=== PATIENT | female | born 1970 | race Caucasian/White ===

== ENCOUNTER 2018-09-20 20:01 | Observation (INO) ==
--- NOTE | 2018-09-20 20:12 | Emergency Department Note ---
Disposition Clinical Impression: Palpitations, Lightheadedness Chest pain Qualifiers: Chest pain type: unspecified Qualified Code(s): R07.9 - Chest pain, unspecified Disposition: Admitted As Inpatient Condition: Fair Time of Disposition: 21:51 General Adult HPI - General Stated complaint: Chest Pain Time Seen by Provider: 09/20/18 20:06 Source: patient Mode of arrival: private vehicle Limitations: no limitations Nursing Notes Reviewed: Yes Vital Signs Reviewed: Yes - History of Present Illness HPI Narrative: Patient is a 47-year-old female with a past medical history including lymphedema, coronary artery disease, failed a stress test in June and had a CABG by Dr. Bernal, has history of lower extremity DVT, atrial fibrillation on Eliquis, presenting with a chief complaint of chest pain. The patient states she has been attending cardiac rehabilitation and she has been doing well. For the past 3 days, she complains of intermittent chest heaviness. She states today, she developed chest heaviness around her left collarbone that radiated into her mid sternum. She states it has been pretty constant. She complains of bilateral hand pain and tingling. She also complains of intermittent palpitations and lightheadedness. She states she feels like her "atrial fibrillation is acting up.". She states she has not experienced this much chest pain since her CABG. She denies any shortness of breath, vomiting, abdominal pa in, fevers or chills. - Related Data Home Medications Medication Instructions Recorded Confirmed Apixaban [Eliquis] 5 mg PO BID 07/08/18 09/20/18 Pantoprazole Sodium [Protonix] 40 mg PO DAILY 07/08/18 09/20/18 Atorvastatin Calcium [Lipitor] 80 mg PO HS 07/10/18 09/20/18 Metoprolol Tartrate 50 mg PO BID 07/10/18 09/20/18 Triamterene/HCTZ 37.5/25mg 1 each PO MOWEFR 09/20/18 09/20/18 [Dyazide] Previous Rx's Medication Instructions Recorded Aspirin Enteric Coated [Aspirin EC] 81 mg PO DAILY #60 tablet. 06/21/18 Allergies Allergy/AdvReac Type Severity Reaction Status Date / Time No Known Allergies Allergy Verified 07/10/18 07:29 All systems ED: reviewed and negative except as stated. Review of Systems: As Per HPI Constitutional: Denies: fever, chills Cardiovascular: Reports: chest pain, palpitations Respiratory: Denies: cough, dyspnea Gastrointestinal: Denies: abdominal pain, vomiting Genitourinary: Denies: dysuria Musculoskeletal: Denies: back pain Neurological: Denies: headache, weakness, numbness, paresthesias, confusion Past Medical History - Past Medical History Attestation: Yes The following information was validated with the patient. Source: patient Medical history: Reports: cancer (Hodgkin's lymphoma), coronary artery disease, hyperlipidemia, hypertension Surgical history: Reports: , coronary bypass (CABG) (CABG2 (HORN to LAD, SVG to OM1)) Psychiatric history: Reports: no psych history - Social History Smoking Status: Former smoker Smokeless Tobacco Status: No Alcohol use: Reports: rarely Drug use: Reports: none Physical Exam - General Limitations: no limitations General appearance: alert, in no apparent distress - Head Head exam: atraumatic, normocephalic - Eye Eye exam: Present: normal appearance, EOMI - ENT ENT exam: normal exam, normal oropharynx - Neck Neck exam: Present: normal inspection, trachea midline - Chest Chest inspection: Present: normal inspection, symmetric chest wall rise, other (Midline sternal scar appears well healing) - Respiratory Respiratory exam: Present: normal lung sounds bilaterally. Absent: respiratory distress, wheezes - Cardiovascular Cardiovascular exam: Present: regular rate, normal rhythm, normal heart sounds, other (bilateral radial pulses equal) - Abdominal Exam Abdominal exam: Present: soft, Non-Tender. Absent: distention - Extremities Exam Extremities exam: Present: normal capillary refill, other (Bilateral lower extremity swelling and lymphedema). Absent: calf tenderness - Neurological Exam Neurological exam: Present: alert, oriented X3 - Psychiatric Psychiatric exam: Present: normal affect, normal mood - Skin Skin exam: Present: warm, dry. Absent: diaphoresis, pallor Course Vital Signs Temperature 98.2 F 09/20/18 20:07 Pulse Rate 92 09/20/18 20:07 Respiratory Rate 18 09/20/18 20:07 Blood Pressure 177/92 09/20/18 20:07 O2 Sat by Pulse Oximetry 100 09/20/18 20:07 Temperature 98.2 F 09/20/18 20:07 Pulse Rate 92 09/20/18 20:07 Respiratory Rate 18 09/20/18 20:07 Blood Pressure 177/92 09/20/18 20:07 O2 Sat by Pulse Oximetry 98 09/20/18 20:24 Oxygen Delivery Oxygen Delivery Room Air Medical Decision Making - MDM Narrative Medical decision making narrative: Patient is anxious appearing. She has chest heaviness, no shortness of breath or lightheadedness, no palpitations at this time. She has history of CABG in June from failing a stress test. She is on Eliquis for atrial fibrillation and lower extremity DVT as well. She notes her compliance with her medications. Vitals are within normal limits. Blood pressure is slightly elevated. We will give her an aspirin as she has not had aspirin today. We will obtain cardiac workup. Anticipate admission. 21:30 Labs and imaging reviewed. Initial troponin less than 0.03. Patient states she has no chest pain at this time. She states she is still having intermittent lightheadedness. Her heart rate has been in the 70s. Hospitalist paged for admission for ACS workup. Patient also has significant risk factors. 21:42 Discussed with hospitalist, Dr. Salazar who accepts admission. - Medical Records Medical records reviewed: Yes I reviewed the patient's medical records. - Lab Data Lab results reviewed: Yes I reviewed the patient's lab results. Result diagrams: 09/20/18 20:18 09/20/18 20:18 Lab Results 09/20/18 09/20/18 09/20/18 Range/Units 20:18 20:18 20:18 WBC 8.5 (4.3-11.1) K/mcL RBC 4.36 (3.82-4.97) M/mcL Hgb 11.7 (11.5-15.4) g/dL Hct 37.3 (35.3-44.9) % MCV 85.6 (83.0-100.0) fL MCH 26.8 L (28.0-33.3) pg MCHC 31.4 L (31.6-35.5) g/dL RDW 14.7 H (11.5-14.5) % Plt Count 249 (140-400) K/mcL MPV 10.2 (9.4-12.4) fL Immature Gran % 0.2 (0-4) % Seg Neutrophils % 60.0 % Lymphocytes % 26.1 % Monocytes % 10.0 % Eosinophils % 3.2 % Basophils % 0.5 % Neutrophils # 5.1 (1.6-8.9) K/mcL Lymphocytes # 2.2 (0.6-4.6) K/mcL Monocytes # 0.9 (0.0-1.3) K/mcL Eosinophils # 0.3 (0.0-0.6) K/mcL Basophils # 0.0 (0.0-0.2) K/mcL PT 12.6 H (9.4-12.1) Seconds INR 1.1 APTT 36.6 H (26.0-36.0) Seconds Sodium 139 (136-145) mEq/L Potassium 3.7 (3.5-5.1) mEq/L Chloride 101 (98-107) mEq/L Carbon Dioxide 28 (23-29) mEq/L BUN 13 (6-20) mg/dL Creatinine 0.80 (0.60-1.20) mg/dL Est GFR ( Amer) > 60 (> 60) Est GFR (Non-Af Amer) > 60 (> 60) BUN/Creatinine Ratio 16 (6-26) Glucose 97 (70-105) mg/dL Calculated Osmolality 288 (280-300) Calcium 9.8 (8.6-10.3) mg/dL Troponin I < 0.03 (< 0.04) ng/mL - Radiology Data Radiology results reviewed: Yes I reviewed the patient's radiology results. Chest X-Ray 09/20/18 20:07 IMPRESSION: No acute abnormality detected. D/ / Hubert Vazquez MD / Hubert Vazquez MD Interpreting Provider: Hubert Vazquez MD - EKG Data EKG #1 EKG attestation: Yes I reviewed and interpreted this EKG. EKG results narrative: EKG obtained at 2008 shows sinus rhythm with heart rate 92, NV interval 142, QRS duration 97, QTC 475, no ST elevation, no ST depression, T-wave inversion in lead 3 and aVR, compared to old EKG on 08/23/2018 which shows new T-wave inversion in lead 3. Attestation Statement - Attestation Attestation: I, Reji Baker, examined this patient and my medical decision-making was reviewed with the GROUND WATER TECHNICIAN/PA/Advanced Practice Nurse/Resident Physician. I agree with the documented findings, disposition and treatment plan as described except to the extent set forth below. 47-year-old female presents emergency Department with concerns of chest pain. Patient reports a recent history of CABG 2 which was performed 3 months ago. She had a complicated recovery time after that with subsequent infections in the right lower extremity as well as removal of her gallbladder. Patient had been steadily improving afterwards and now has developed pain to the left inferior chest that feels different to the pain after she had after her CABG. Patient also feels lightheaded in association with the pain. She denies syncopal event. Patient denies hematemesis, melena, hematochezia. Laboratory evaluation does not have an elevation of her troponin. EKG did not show evidence of STEMI.I reviewed the EKG with the resident and agree with the interpretation. Patient will be admitted to hospitalist for further care and evaluation of her chest pain to rule out ACS.
[2018-09-20] MEDS ORDERED: Aspirin 81 MG TAB.CHEW PO STA (20:32)
[2018-09-20 20:52] LABS: Basophils % 0.5 %; Eosinophils # 0.3 K/mcL (0.0-0.6); Eosinophils % 3.2 %; Hematocrit 37.3 % (35.3-44.9); Hemoglobin 11.7 g/dL (11.5-15.4); Immature Granulocytes % 0.2 % (0-4); Lymphocytes # 2.2 K/mcL (0.6-4.6); Lymphocytes % 26.1 %; Mean Corpuscular HGB Conc 31.4 g/dL (31.6-35.5); Mean Corpuscular Hemoglobin 26.8 pg (28.0-33.3); Mean Corpuscular Volume 85.6 fL (83.0-100.0); Mean Platelet Volume 10.2 fL (9.4-12.4); Monocytes # 0.9 K/mcL (0.0-1.3); Neutrophils # 5.1 K/mcL (1.6-8.9); Platelet Count 249 K/mcL (140-400); Red Blood Count 4.36 M/mcL (3.82-4.97); Red Cell Distribution Width 14.7 % (11.5-14.5); White Blood Count 8.5 K/mcL (4.3-11.1)
[2018-09-20 21:00] LABS: INR 1.1; Prothrombin Time 12.6 Seconds (9.4-12.1)
[2018-09-20 21:02] LABS: Activated Partial Thrombo Time 36.6 Seconds (26.0-36.0)
[2018-09-20 21:15] LABS: Troponin I < 0.03 ng/mL (< 0.04)
[2018-09-20 21:21] LABS: BUN/Creatinine Ratio 16 (6-26); Blood Urea Nitrogen 13 mg/dL (6-20); Calcium 9.8 mg/dL (8.6-10.3); Carbon Dioxide 28 mEq/L (23-29); Chloride 101 mEq/L (98-107); Glucose 97 mg/dL (70-105); Osmolality,Calculated 288 (280-300); Potassium 3.7 mEq/L (3.5-5.1); Sodium 139 mEq/L (136-145); eGFR For African Americans > 60 (> 60); eGFR For Non-African Americans > 60 (> 60)
--- NOTE | 2018-09-20 23:58 | Internal Med History&Physical ---
Date of Encounter: 09/20/18 Time of Encounter: 10:00 Internal Medicine - H&P: HPI Chief complaint: chest pain History of present illness: Ms. Plascencia is a 47 year old female with past medical history of cancer, coronary artery disease, DVT, hyperlipidemia, hypertension who presented to the ER with 3 days history of intermittent chest pain, pressure in character radia ting to her left arm and associated with bilateral hand pain and tingling as well as intermitted palpitation. The patient has extensive history of coronary artery disease including CABG. She also has history of atrial fibrillation and on chronic anticoagulation was Eliquis. The patient stated that the pain is similar to what she used to and/or prior to her CABG. The patient was evaluated by the ER staff and initial workup including EKG and cardiac enzymes were was no significant abnormalities the patient was admitted for further evaluation and management of possible acute coronary syndrome. Past Med Surg Social Fam HX - Past Medical History Medical history: cancer, coronary artery disease, DVT, hyperlipidemia, hypertens ion Additional medical history: lymphoma 15 years ago Psychiatric history: no psych history - Past Surgical History Surgical History: , coronary bypass (CABG) - Social History Smoking Status: Former smoker Smokeless Tobacco Status: No Alcohol use: rarely Drug use: none - Family History Maternal Grandfather Living Status: Mother Living Status: Still Living Father Living Status: Hx Family Cancer: Yes Hx Family Endocrine Disorder: Yes (diabetes) Internal Medicine - H&P: Meds Aspirin Enteric Coated [Aspirin EC] 81 mg PO DAILY #60 tablet. 06/21/18 [Rx] Apixaban [Eliquis] 5 mg PO BID 07/08/18 [History] Pantoprazole Sodium [Protonix] 40 mg PO DAILY 07/08/18 [History] Atorvastatin Calcium [Lipitor] 80 mg PO HS 07/10/18 [History] Metoprolol Tartrate 50 mg PO BID 07/10/18 [History] Triamterene/HCTZ 37.5/25mg [Dyazide] 1 each PO MOWEFR 09/20/18 [History] Allergy/AdvReac Type Severity Reaction Status Date / Time No Known Allergies Allergy Verified 07/10/18 07:29 All Systems PM: A 10-system review of systems was performed and is negative for pertinent findings except as documented above in the HPI. - Constitutional Vitals: Temp Pulse Resp BP Pulse Ox 98.0 F 81 14 124/69 98 09/20/18 23:18 09/20/18 23:18 09/20/18 23:18 09/20/18 23:18 09/20/18 23:18 General appearance: Present: A&O X 3 Exam: ` - Head Head exam: Present: atraumatic, normocephalic - Neck Neck exam general surgery: Present: supple, trachea midline. Absent: lymphadenopathy - Respiratory Respiratory exam: Present: CTAB. Absent: accessory muscle use, rales, rhonchi, wheezes - GI/Abdominal GI/Abdominal exam: Present: normal bowel sounds, soft, no peritoneal signs. Absent: distended, tenderness - Extremities Exam Extremities exam: Present: warm, radial pulses palpable and symmetrical. Absent: calf tenderness, cyanotic, pedal edema Internal Med - H&P Results - Labs CBC & Chem 7: 09/21/18 01:27 09/21/18 20:01 Labs: Short CBC 09/20/18 Range/Units 20:18 WBC 8.5 (4.3-11.1) K/mcL Hgb 11.7 (11.5-15.4) g/dL Hct 37.3 (35.3-44.9) % Plt Count 249 (140-400) K/mcL Neutrophils # 5.1 (1.6-8.9) K/mcL BMP 09/20/18 20:18 Sodium 139 Potassium 3.7 Chloride 101 Carbon Dioxide 28 BUN 13 Creatinine 0.80 Glucose 97 Calcium 9.8 Cardiac Enzymes 09/20/18 Range/Units 20:18 Troponin I < 0.03 (< 0.04) ng/mL - Impressions ITS Impressions Chest X-Ray 09/20/18 20:07 IMPRESSION: No acute abnormality detected. D/ / Hubert Vazquez MD / Hubert Vazquez MD Interpreting Provider: Hubert Vazquez MD - Assessment and Plan (1) Chest pain Status: Chronic Assessment and plan: - The patient has extensive history of coronary artery disease including CABG. She also has history of atrial fibrillation and on chronic anticoagulation was Eliquis. The patient stated that the pain is similar to what she used to and/or prior to her CABG. PLAN: - cardiac enzymes x 2 q 8 hr - EKG now and in AM - ASA - O2 by NC to keep SpO2 greater than 92% - UA - CBCD, BMP in AM - Fasting lipids Qualifiers: Chest pain type: unspecified Qualified Code(s): R07.9 - Chest pain, unspecified (2) Anemia Status: Chronic Assessment and plan: Cont. to monitor H&H Qualifiers: Anemia type: unspecified type Qualified Code(s): D64.9 - Anemia, unspecified (3) Hypertension Status: Chronic Assessment and plan: Cont home meds Qualifiers: Hypertension type: essential hypertension Qualified Code(s): I10 - Essential (primary) hypertension (4) HLD (hyperlipidemia) Status: Chronic Assessment and plan: FLP in AM Qualifiers: Hyperlipidemia type: unspecified Qualified Code(s): E78.5 - Hyperlipidemia, unspecified (5) DVT prophylaxis Status: Acute - Time Spent With Patient Total time spent is greater than 50% in coordination of care (as documented) at patient's floor/unit and/or counseling patient:
[2018-09-21] MEDS ORDERED: Ondansetron 4 MG/2 ML VIAL IVP PRN (00:05)
[2018-09-21] MEDS ORDERED: Naloxone 0.4 MG/ML INJ IVP PRN (00:05)
[2018-09-21 01:44] LABS: Basophils % 0.4 %; Eosinophils # 0.3 K/mcL (0.0-0.6); Eosinophils % 4.3 %; Hematocrit 35.9 % (35.3-44.9); Hemoglobin 11.3 g/dL (11.5-15.4); Immature Granulocytes % 0.3 % (0-4); Mean Corpuscular HGB Conc 31.5 g/dL (31.6-35.5); Mean Corpuscular Hemoglobin 26.8 pg (28.0-33.3); Mean Corpuscular Volume 85.1 fL (83.0-100.0); Mean Platelet Volume 9.8 fL (9.4-12.4); Monocytes # 0.6 K/mcL (0.0-1.3); Monocytes % 8.8 %; Neutrophils # 4.1 K/mcL (1.6-8.9); Platelet Count 207 K/mcL (140-400); Red Blood Count 4.22 M/mcL (3.82-4.97); Red Cell Distribution Width 14.7 % (11.5-14.5); Segmented Neutrophils % 58.2 %
[2018-09-21 01:55] LABS: INR 1.1; Prothrombin Time 12.1 Seconds (9.4-12.1)
[2018-09-21 01:57] LABS: Activated Partial Thrombo Time 35.5 Seconds (26.0-36.0)
[2018-09-21 02:01] LABS: Alanine Aminotransferase 32 Units/L (7-52); Albumin 3.5 g/dL (3.5-5.7); Albumin/Globulin Ratio 1.1 (1.1-2.2); Alkaline Phosphatase 131 Units/L (34-104); Aspartate Amino Transferase 39 Units/L (13-39); BUN/Creatinine Ratio 18 (6-26); Bilirubin,Total 0.3 mg/dL (0.3-1.0); Blood Urea Nitrogen 14 mg/dL (6-20); Calcium 9.1 mg/dL (8.6-10.3); Carbon Dioxide 25 mEq/L (23-29); Chloride 104 mEq/L (98-107); Chol/HDL Ratio 3.6 (0-4.9); Cholesterol 122 mg/dL (< 200); Globulin 3.1 g/dL (2.4-3.5); Glucose 120 mg/dL (70-105); HDL Cholesterol 34 mg/dL (40-59); LDL Cholesterol,Calculated 58 mg/dL (0-99); Magnesium 1.8 mg/dL (1.6-2.6); Osmolality,Calculated 288 (280-300); Phosphorous 3.5 mg/dL (2.7-4.5); Potassium 3.4 mEq/L (3.5-5.1); Sodium 138 mEq/L (136-145); Total Protein 6.6 g/dL (6.4-8.9); Triglycerides 152 mg/dL (< 150); eGFR For African Americans > 60 (> 60); eGFR For Non-African Americans > 60 (> 60)
[2018-09-21 07:29] VITALS: BP 121/73
[2018-09-21] MEDS ORDERED: Aspirin Enteric Coated 81 MG Tablet PO SCH (09:00)
[2018-09-21] MEDS ORDERED: Apixaban 5 MG TABLET PO SCH (09:00)
--- NOTE | 2018-09-21 10:28 | Cardiology Consult Note ---
<Mallika Shrestha Duke - Last Filed: 09/21/18 11:10> Date of Encounter: 09/21/18 Time of Encounter: 09:30 Assessment and Plan (1) Chest pain Current Visit: Yes Status: Chronic Atypical chest pain symptoms. Pain free upon exam. No ST/T wave changes noted. Troponin negative x3. Recent 2v CABG on 06/16/18. Check TTE to evaluate structure and function. Suspect symptoms may be secondary to poorly controlled BP as BP was severely elevated upon presentation. If no significant abnormalities on TTE, anticipate sign-off. Qualifiers: Chest pain type: unspecified Qualified Code(s): R07.9 - Chest pain, unspecified (2) S/P CABG (coronary artery bypass graft) Current Visit: No Status: Acute S/p recent 2vCABG June 2018. Plan as above. Asa, statin, and BB. (3) Hypertension Current Visit: Yes Status: Chronic Suspect poorly controlled BP may be attributing to symptoms. Continue to monitor, currently controlled. Qualifiers: Hypertension type: essential hypertension Qualified Code(s): I10 - Essential (primary) hypertension (4) PAF (paroxysmal atrial fibrillation) Current Visit: Yes Status: Acute Patient reports hx of PAF, on Eliquis (also with hx of DVT). No PAF noted on telemetry. Continue BB. Discussion w patient/family: The assessment and plan as outlined above was discussed with the patient and/or family members who expressed understanding and agreement. All questions were an swered. Thank you for involving us in the care of your patient. Please call with any questions. The patient will be discussed and reviewed with Dr. Reji Pacheco; changes to be made accordingly. History of Present Illness Consult date: 09/21/18 Requesting physician: Marvin Zayas Consult reason: Chest pain Chief complaint: dizziness, lightheadedness, chest pain History of present illness: Ms. Plascencia is a 47 year old female with PMHx of Hodgkins Lymphoma (remission), HLD, CAD s/p CABG, and PAF (Eliquis) who presented to the ED with complaints lightheadedness associated with left arm tingling. Patient reports symptoms started a few days ago and she was "not feeling right." She states symptoms would come and go and was not related to activity or exertion. Nothing seemed to improve discomfort however left arm tingling worsened with movement or reaching for something. Yesterday, she had an episode of palpitations that was similar to "afib flare" which prompted ED evaluation. Troponin negative x3. No significant ECG changes noted. She is chest pain free upon exam. Of noted, she was severely hypertensive upon arrival. Recent CV testing: TTE 06/15/18: LVEF 60%, no significant valvular dysfunction, normal wall motion LHC 06/15/18: severe 1v CAD, 85% LMCA, urgent CABG recommended [facility] 06/16/18: 2v CABG; HORN-LAD, SVG to OM Past Med Surg Social Fam HX - Past Medical History Attestation: Yes The following information was validated with the patient. Source: patient Medical history: cancer, coronary artery disease, DVT, hyperlipidemia, hypertension Additional medical history: lymphoma 15 years ago Psychiatric history: no psych history - Past Surgical History Surgical History: , coronary bypass (CABG) - Social History Smoking Status: Former smoker Smokeless Tobacco Status: No Alcohol use: rarely Drug use: none - Family History Maternal Grandfather Living Status: Mother Living Status: Still Living Father Living Status: Hx Family Cancer: Yes Hx Family Endocrine Disorder: Yes (diabetes) Medications and Allergies Aspirin Enteric Coated [Aspirin EC] 81 mg PO DAILY #60 tablet. 06/21/18 [Rx] Apixaban [Eliquis] 5 mg PO BID 07/08/18 [History] Pantoprazole Sodium [Protonix] 40 mg PO DAILY 07/08/18 [History] Atorvastatin Calcium [Lipitor] 80 mg PO HS 07/10/18 [History] Metoprolol Tartrate 50 mg PO BID 07/10/18 [History] Triamterene/HCTZ 37.5/25mg [Dyazide] 1 each PO MOWEFR 09/20/18 [History] Allergy/AdvReac Type Severity Reaction Status Date / Time No Known Allergies Allergy Verified 07/10/18 07:29 All Systems Review: The remainder of the systems were reviewed and are negative - Cardiovascular Cardiovascular: as per HPI Physical Examination Vital Signs, Last 4 Hours Temp Pulse Resp BP Pulse Ox 09/21/18 07:28 97.5 F L 73 14 121/73 98 General: Conversant, No Apparent Distress HEENT: Atraumatic, Normocephaly, Mucus Membranes Moist Neck: No JVD, Normal carotid pulses Cardiac: Reg Rate and Rhythm, Normal S1 and S2, No Murmur Lungs: Normal Breath Sounds, No Wheeze, Rales, Rhonchi Neuro: Alert and responsive, No focal deficits noted Abdomen: Soft, Non-Tender Skin: No rashes noted on visualized skin, Other (healed sternotomy) Musculoskeletal: No Chest Wall Tenderness Extremities: No Clubbing, No Cyanosis, No Edema, Normal Pulses Results 09/21/18 01:27 09/21/18 01:27 Lab Results 09/20/18 09/20/18 09/20/18 20:18 20:18 20:18 WBC 8.5 Hgb 11.7 Hct 37.3 Plt Count 249 INR 1.1 APTT 36.6 H Sodium 139 Potassium 3.7 Chloride 101 Carbon Dioxide 28 BUN 13 Creatinine 0.80 Glucose 97 Calcium 9.8 Magnesium Total Bilirubin AST ALT Alkaline Phosphatase Troponin I < 0.03 09/21/18 09/21/18 09/21/18 01:27 01:27 01:27 WBC 7.0 Hgb 11.3 L Hct 35.9 Plt Count 207 INR 1.1 APTT 35.5 Sodium Potassium Chloride Carbon Dioxide BUN Creatinine Glucose Calcium Magnesium Total Bilirubin AST ALT Alkaline Phosphatase Troponin I < 0.03 09/21/18 09/21/18 01:27 06:07 WBC Hgb Hct Plt Count INR APTT Sodium 138 Potassium 3.4 L Chloride 104 Carbon Dioxide 25 BUN 14 Creatinine 0.76 Glucose 120 H Calcium 9.1 Magnesium 1.8 Total Bilirubin 0.3 AST 39 ALT 32 Alkaline Phosphatase 131 H Troponin I < 0.03 Active Medications Apixaban (Eliquis) 5 mg PO BID [facility]; Protocol Stop: 03/23/19 09:01 Last Admin: 09/21/18 07:57 Dose: 5 mg Documented by: Aspirin (Aspirin Ec) 81 mg PO DAILY [facility] Stop: 03/23/19 09:01 Last Admin: 09/21/18 07:57 Dose: 81 mg Documented by: Atorvastatin Calcium (Lipitor) 80 mg PO HS [facility] Stop: 03/23/19 21:01 Metoprolol Tartrate (Lopressor) 50 mg PO BID [facility] Stop: 03/23/19 09:01 Last Admin: 09/21/18 07:57 Dose: 50 mg Documented by: Naloxone HCl (Narcan) 0.4 mg IVP Q2MPRN PRN PRN Reason: SEE COMMENTS Stop: 03/23/19 00:06 Omeprazole (Prilosec) 20 mg PO DAILY [facility] Stop: 03/23/19 09:01 Last Admin: 09/21/18 07:57 Dose: 20 mg Documented by: Ondansetron HCl (Zofran) 4 mg IVP Q8H PRN PRN Reason: Nausea And Vomiting Stop: 03/23/19 00:06 Triamterene/HCTZ (Dyazide) 1 each PO MOWEFR [facility] Stop: 03/24/19 00:09 - Imaging and Cardiology Stress Test: report reviewed Echo: pending, report reviewed Cardiac cath: report reviewed Other Results: 12 hour tele: avg HR=75 SR. No events noted. No PAF - EKG Interpretation EKG results cardiology: personally reviewed Consult Discharge Plan - Plan Referrals: Patrick Contreras DO [Primary Care Provider] - <Reji Pacheco - Last Filed: 09/21/18 12:17> Date of Encounter: 09/21/18 - Attending Attestation I have personally performed a face to face evaluation on this patient. I have reviewed and agree with the care plan. History and Exam by me shows: Known CAD, S/P CABG. Presents with symptoms that are somewhat atypical. Continue JEREL and check echo. Assessment and Plan Discussion w patient/family: The assessment and plan as outlined above was discussed with the patient and/or family members who expressed understanding and agreement. All questions were answered. Thank you for involving us in the care of your patient. Please call with any questions. History of Present Illness History of present illness: Ms. Plascencia is a 47 year old female All Systems Review: The remainder of the systems were reviewed and are negative Results 09/21/18 01:27 09/21/18 01:27 Lab Results 09/20/18 09/20/18 09/20/18 20:18 20:18 20:18 WBC 8.5 Hgb 11.7 Hct 37.3 Plt Count 249 INR 1.1 APTT 36.6 H Sodium 139 Potassium 3.7 Chloride 101 Carbon Dioxide 28 BUN 13 Creatinine 0.80 Glucose 97 Calcium 9.8 Magnesium Total Bilirubin AST ALT Alkaline Phosphatase Troponin I < 0.03 09/21/18 09/21/18 09/21/18 01:27 01:27 01:27 WBC 7.0 Hgb 11.3 L Hct 35.9 Plt Count 207 INR 1.1 APTT 35.5 Sodium Potassium Chloride Carbon Dioxide BUN Creatinine Glucose Calcium Magnesium Total Bilirubin AST ALT Alkaline Phosphatase Troponin I < 0.03 09/21/18 09/21/18 01:27 06:07 WBC Hgb Hct Plt Count INR APTT Sodium 138 Potassium 3.4 L Chloride 104 Carbon Dioxide 25 BUN 14 Creatinine 0.76 Glucose 120 H Calcium 9.1 Magnesium 1.8 Total Bilirubin 0.3 AST 39 ALT 32 Alkaline Phosphatase 131 H Troponin I < 0.03
--- NOTE | 2018-09-21 12:55 | Internal Med Progress Note ---
Hospitalist Progress Note - Encounter Date of Encounter: 09/21/18 Time of Encounter: 12:53 - Subjective Interval History: Patient's chest pain improved this morning was still 2/10. He notes easy fatigue over last week with complaining stairs but no shortness of breath that she can recall. - Exam Vitals: Temp Pulse Resp BP Pulse Ox 97.5 F L 73 14 121/73 98 09/21/18 07:28 09/21/18 07:28 09/21/18 07:28 09/21/18 07:28 09/21/18 07:28 Exam: General: Ill-appearing and in no acute distress HEENT: No erythema of posterior pharynx. No exudates. Lymphatics: No mandibular or cervical lymphadenopathy Cardiovascular: RRR. No murmurs. No chest wall tenderness. Lungs: Clear to auscelltation bilaterally. Regular chest rise. Abdomen: Non-tender. No rebound or gaurding. Nl bowel sounds. Extremities: No edema. 2+ pulses radial and pedal pulses Skin: No rahses, abrasions, or contusions. Nl cap refill. Psych: Nl attention. A&Ox3 Neuro: quill layer II-XII intact. 5/5 strength. Sensation to light touch and pinprick intact. - Assessment and Plan (1) Chest pain Current Visit: Yes Status: Chronic Assessment and Plan: Patient with history of hypertension and CAD status post recent CABG in June 2018 presents with chest pain and fatigue in the setting of hypertension but otherwise stable vitals, unremarkable physical exam, negative troponins 3, and EKG without ischemic changes. -Troponins negative but patient is high risk -Fatigue and chest pain symptoms could be related to heart failure: Echocardiogram with diastolic dysfunction but preserved ejection fraction and no clinical signs of heart failure. Says that she has gained weight since that time. Cardiology consulted and recommend echocardiogram PLAN: - Echocardiogram - If normal, will discuss case with patient's surgeon - Continue home ASA, Apixaban, Atorvastatin, Metoprolol (2) Hypertension Current Visit: Yes Status: Chronic Assessment and Plan: Hypertensive emergency could be because of patient's chest pain, however, SBP only up to 177 on admission. - Continue home BP medications and monitor (3) PAF (paroxysmal atrial fibrillation) Current Visit: Yes Status: Acute Assessment and Plan: On Eliquis given hx of DVT and recently diagnosed a-fib. - Continue Eliquis (4) Hx of deep venous thrombosis Current Visit: Yes Status: Acute Assessment and Plan: Has been on anticoagulation for 3 months DVT Prophylaxis: [facility]: Result - Labs CBC & Chem 7: 09/21/18 01:27 09/21/18 01:27 Labs: Short CBC 09/20/18 09/21/18 Range/Units 20:18 01:27 WBC 8.5 7.0 (4.3-11.1) K/mcL Hgb 11.7 11.3 L (11.5-15.4) g/dL Hct 37.3 35.9 (35.3-44.9) % Plt Count 249 207 (140-400) K/mcL Neutrophils # 5.1 4.1 (1.6-8.9) K/mcL BMP 09/20/18 09/21/18 20:18 01:27 Sodium 139 138 Potassium 3.7 3.4 L Chloride 101 104 Carbon Dioxide 28 25 BUN 13 14 Creatinine 0.80 0.76 Glucose 97 120 H Calcium 9.8 9.1 Cardiac Enzymes 09/20/18 09/21/18 09/21/18 Range/Units 20:18 01:27 06:07 Troponin I < 0.03 < 0.03 < 0.03 (< 0.04) ng/mL Liver Function 09/21/18 Range/Units 01:27 Total Bilirubin 0.3 (0.3-1.0) mg/dL AST 39 (13-39) Units/L ALT 32 (7-52) Units/L Alkaline Phosphatase 131 H (34-104) Units/L Albumin 3.5 (3.5-5.7) g/dL - ABG Interpretation ABG results: PT/INR, D-dimer PT 12.1 Seconds (9.4-12.1) 09/21/18 01:27 - Impressions Impressions Chest X-Ray 09/20/18 20:07 IMPRESSION: No acute abnormality detected. D/ / Hubert Vazquez MD / Hubert Vazquez MD Interpreting Provider: Hubert Vazquez MD Consult Discharge Plan - Plan Referrals: Patrick Contreras DO [Primary Care Provider] - (1) Chest pain Qualifiers: Chest pain type: unspecified Qualified Code(s): R07.9 - Chest pain, unspecified (2) Hypertension Qualifiers: Hypertension type: essential hypertension Qualified Code(s): I10 - Essential (primary) hypertension
--- NOTE | 2018-09-21 15:21 | Electrocardiograph Report ---
[place] [employer] Test Date: 2018-09-20 Pat Name: Jordana Plascencia Department: [id number] Room: 2NE30 Gender: F [employer]: : 1970 Requested By: Reji Baker Order Number: [id number] Reading MD: Tyler Rodrigues Measurements Intervals [place] Rate: 92 P: 41 AR: 142 QRS: 50 QRSD: 97 T: -6 QT: 384 QTc: 475 Interpretive Statements Sinus rhythm Low voltage, precordial leads Borderline T abnormalities, inferior leads Electronically Signed On 09-21-2018 15:20:04 EDT by Tyler Rodrigues
--- NOTE | 2018-09-21 16:18 | Event Note ---
Date of Encounter: 09/21/18 Time of Encounter: 16:00 - Cardiology Event Note TTE resulted and demonstrated preserved LVEF with normal wall motion. No further inpt recommendations from Cardiology as inpt, will sign-off. Has upcoming appt in the outpatient setting.
--- NOTE | 2018-09-22 00:08 | Event Note ---
Date of Encounter: 09/21/18 Time of Encounter: 19:44 Alerted by patient's nurse ASHLIE Ortiz that the patient was wanting to leave AMA. Went to see patient who is resting in bed. Patient expressed frustration over lack of communication between providers regarding her care. Patient was admitted w/CP. Echocardiogram showed LVEF of 60% and normal LV chamber size, wall thickness, and function. Troponins were negative 3. Patient had recent to valve CABG on 06/16/18. Due to no significant abnormalities on TTE, Cardiology signed off. Pt. stated she was now asymptomatic. I expressed concern over the fact that the patient was mildly hypokalemic in her a.m. labs. Patient stated that she was d/t follow-up with Cardiology as an OP anyway. I ordered a stat potassium level to assess for the possible need for supplementation prior to pt. leaving. Potassium returned at 3.7. I instructed the pt. to return to the hospital ED if she began to have symptoms again and to f/u w/Cardiology as planned. Pt. expressed understanding and agreement. Nurse instructed to prepare AMA paperwork and remove pts. IV access prior to leaving.
--- NOTE | 2018-09-22 08:43 | Electrocardiograph Report ---
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
--- NOTE | 2018-09-23 17:45 | Discharge Summary ---
Date of Encounter: 09/21/18 Time of Encounter: 17:43 - Discharge Diagnosis (1) Chest pain Priority: Primary Status: Chronic Qualifiers: Chest pain type: unspecified Qualified Code(s): R07.9 - Chest pain, unspecified (2) Hypertension Priority: Secondary Status: Chronic Qualifiers: Hypertension type: essential hypertension Qualified Code(s): I10 - Essential (primary) hypertension (3) PAF (paroxysmal atrial fibrillation) Priority: Secondary Status: Acute (4) Hx of deep venous thrombosis Priority: Secondary Status: Acute Hospital course: Ms. Plascencia is a 47 year old female with history of hypertension and CAD status post recent CABG in June 2018 presented with chest pain and fatigue. Cardiology was consulted and echocardiogram was completed with diastolic dysfunction but preserved ejection fraction and no wall motion abnormalities. Cardiology was okayed for discharge the next morning, however, patient decided to leave the night before AMA. Said she would follow up with her clinical psychologist licensed. - Time Spent with Patient Total time spent providing and/or coordinating discharge services: 65 minutes Time spent: Greater than 30 minutes - Discharge Medications Prescriptions: No Action Aspirin Enteric Coated [Aspirin EC] 81 mg PO DAILY #60 tablet. Apixaban [Eliquis] 5 mg PO BID Pantoprazole Sodium [Protonix] 40 mg PO DAILY Atorvastatin Calcium [Lipitor] 80 mg PO HS Metoprolol Tartrate 50 mg PO BID Triamterene/HCTZ 37.5/25mg [Dyazide] 1 each PO MOWEFR Home Medications: Aspirin Enteric Coated [Aspirin EC] 81 mg PO DAILY #60 tablet. 06/21/18 [Rx] Apixaban [Eliquis] 5 mg PO BID 07/08/18 [History] Pantoprazole Sodium [Protonix] 40 mg PO DAILY 07/08/18 [History] Atorvastatin Calcium [Lipitor] 80 mg PO HS 07/10/18 [History] Metoprolol Tartrate 50 mg PO BID 07/10/18 [History] Triamterene/HCTZ 37.5/25mg [Dyazide] 1 each PO MOWEFR 09/20/18 [History] Allergies/Adverse Reactions: Allergy/AdvReac Type Severity Reaction Status Date / Time No Known Allergies Allergy Verified 07/10/18 07:29 Date of admission: 09/20/18 21:55 Primary care physician: Patrick Contreras DO Consults: 09/21/18 07:58 Consult to Cardiology [CONS] Routine Comment: Consulting Provider: Cardiology Gabriella Reason for Consult: Chest pain . Likely need for inpatient risk stratification, hx of CABG Call Completed: Yes - Constitutional Vitals: Temp Pulse Resp BP Pulse Ox 97.5 F L 73 14 121/73 98 09/21/18 07:28 09/21/18 07:28 09/21/18 07:28 09/21/18 07:28 09/21/18 07:28 Exam: Did not see patient before discharge because she left AMA - Patient Status Disposition: Left Against Medical Advice Functional capacity at discharge: independent ambulation Overall status at discharge: patient is not back to baseline - Discharge Instructions Follow Up With: Patrikc Contreras DO [Primary Care Provider] - Forms: ED Satisfaction Letter - Diet and Activity Activity: increase activity as tolerated Diet: advance to your usual diet
== END 2018-09-21 20:50 | disposition left against medical advice (07) ==
LOC: EMEROOARM 20:01 → 2NENU 20:01
PROVIDERS: ADMIT Internal Medicine Nephrology; ATTEND Internal Medicine Nephrology